=== PATIENT | female | born 1995 | race Caucasian/White ===

== ENCOUNTER 2016-11-27 04:15 | Emergency (ER) | payer OTHER ==
[2016-11-27 04:36] VITALS: BP 150/85; PULSE 92; RESP 16; TEMP 97.6; O2SAT 99
== END 2016-11-27 04:54 ==
LOC: ED 04:15
DX: F43.23 Adjustment disorder with mixed anxiety and depressed mood (principal)
CPT/HCPCS: 99282

== ENCOUNTER 2016-12-15 13:08 | Emergency (ER) | payer OTHER ==
[2016-12-15 13:27] VITALS: TEMP 99.2; O2SAT 100
[2016-12-15 13:47] LABS: APPEARANCE,URINE Clear; BILIRUBIN,URINE NEGATIVE (NEGATIVE); COLOR,URINE Yellow; GLUCOSE, URINE (UA) NEGATIVE (NEGATIVE); KETONES,URINE NEGATIVE (NEGATIVE); LEUKOCYTE ESTERASE ,URINE NEGATIVE (NEGATIVE); NITRATE,URINE NEGATIVE (NEGATIVE); OCCULT BLOOD,URINE 1+ (NEG-TRACE); UROBILINOGEN,URINE 0.2 (0.2-1.0 EU)
[2016-12-15 13:51] LABS: WBC,URINE 0-2 (0-5AV/HPF)
[2016-12-15 16:37] VITALS: BP 110/74; PULSE 80; RESP 18
== END 2016-12-15 16:00 | disposition home or self-care (01) ==
LOC: ED 13:08
DX: O26.891 Other specified pregnancy related conditions, first trimester (principal); R23.8 Other skin changes; R11.0 Nausea; R46.89 Other symptoms and signs involving appearance and behavior; M54.5 Low back pain; R10.33 Periumbilical pain
CPT/HCPCS: 81001; 84703; 99282; 99283

== ENCOUNTER 2016-12-22 18:03 | Emergency (ER) | payer OTHER ==
[2016-12-22 18:20] VITALS: RESP 16; TEMP 98.9
[2016-12-22 18:41] LABS: BASOPHILS % (AUTO) 1 % (0-3); EOSINOPHILS % (AUTO) 3 % (0-9); HEMATOCRIT 38 % (35-47); MEAN CORPUSCULAR HGB CONC 32.9 gm/dl (32.0-36.0); MEAN CORPUSCULAR VOLUME 85 fL (81-99); MONOCYTES % (AUTO) 5.8 % (0-12); NEUTROPHILS % (AUTO) 61.3 % (37-80)
[2016-12-22 18:59] LABS: ALBUMIN 3.6 gm/dl (3.4-5.0); CALCIUM 8.7 mg/dl (8.5-10.1); MAGNESIUM 1.9 mg/dl (1.8-2.4); POTASSIUM 3.6 mMol/L (3.5-5.1)
[2016-12-22] MEDS ORDERED: SODIUM CHLORIDE 0.9% 500 ML 500 ML IV ONE (20:12)
[2016-12-22 22:20] VITALS: BP 126/74; PULSE 82; O2SAT 98
== END 2016-12-22 21:57 | disposition home or self-care (01) ==
LOC: ED 18:03
DX: O9A.311 Physical abuse complicating pregnancy, first trimester (principal); S40.812A Abrasion of left upper arm, initial encounter; S40.811A Abrasion of right upper arm, initial encounter; R10.9 Unspecified abdominal pain; Z3A.08 8 weeks gestation of pregnancy; Y04.8XXA Assault by other bodily force, initial encounter; Y07.01 Husband, perpetrator of maltreatment and neglect
CPT/HCPCS: 36415; 71010; 80053; 83735; 84100; 85025; 93005; 96365; 99284; 99285

== ENCOUNTER 2016-12-24 18:07 | Emergency (ER) | payer OTHER ==
[2016-12-24 19:07] LABS: BASOPHILS % (AUTO) 1 % (0-3); EOSINOPHILS % (AUTO) 3 % (0-9); HEMATOCRIT 37 % (35-47); MEAN CORPUSCULAR HGB CONC 32.9 gm/dl (32.0-36.0); MEAN CORPUSCULAR VOLUME 86 fL (81-99); NEUTROPHILS % (AUTO) 60.8 % (37-80)
[2016-12-24 19:30] LABS: CALCIUM 9.2 mg/dl (8.5-10.1); GLOM FILT RATE 85 mL/min (>60); POTASSIUM 3.6 mMol/L (3.5-5.1); SALICYLATE < 2.8 mg/dl (2.8-30.0); SODIUM 136 mMol/L (136-145); THYROID STIMULATING HORMONE 2.088 uIU/ml (0.358-3.740)
[2016-12-24 19:32] LABS: APPEARANCE,URINE Slightly Cloudy; BILIRUBIN,URINE NEGATIVE (NEGATIVE); COLOR,URINE Yellow; GLUCOSE, URINE (UA) NEGATIVE (NEGATIVE); KETONES,URINE NEGATIVE (NEGATIVE); LEUKOCYTE ESTERASE ,URINE NEGATIVE (NEGATIVE); NITRATE,URINE NEGATIVE (NEGATIVE); OCCULT BLOOD,URINE 1+ (NEG-TRACE); UROBILINOGEN,URINE 0.2 (0.2-1.0 EU)
[2016-12-24 19:43] LABS: AMPHETAMINES NEGATIVE (NEGATIVE); METHADONE NEGATIVE (NEGATIVE); METHAMPHETAMINES NEGATIVE (NEGATIVE); OPIATES(OP13) NEGATIVE (NEGATIVE); OXYCODONE(OXY) NEGATIVE (NEGATIVE); PROPOXYPHENE(PPX) NEGATIVE (NEGATIVE); RBC,URINE 0-3 (0-3AV/HPF); TRICYCLIC ANTIDEPRESSANTS NEGATIVE (NEGATIVE)
[2016-12-24 21:41] VITALS: BP 131/84; PULSE 102; RESP 16; TEMP 98.7; O2SAT 98
== END 2016-12-24 21:50 | disposition short-term general hospital (02) ==
LOC: ED 18:07
DX: R45.851 Suicidal ideations (principal); F32.9 Major depressive disorder, single episode, unspecified
CPT/HCPCS: 36415; 80048; 80305; 80307; 81001; 84443; 85025; 99284; 99285

== ENCOUNTER 2017-02-01 07:16 | Emergency (ER) | payer OTHER ==
[2017-02-01 07:31] VITALS: RESP 22; TEMP 98.9
[2017-02-01 08:55] VITALS: BP 125/73; PULSE 86; O2SAT 97
== END 2017-02-01 08:36 | disposition home or self-care (01) ==
LOC: ED 07:16
DX: O20.9 Hemorrhage in early pregnancy, unspecified (principal); Z3A.10 10 weeks gestation of pregnancy
CPT/HCPCS: 36415; 99283

== ENCOUNTER 2017-02-13 16:34 | Emergency (ER) | payer OTHER ==
[2017-02-13 17:00] VITALS: BP 140/89; PULSE 95; RESP 18; TEMP 98.1; O2SAT 100
[2017-02-13 17:46] LABS: BASOPHILS % (AUTO) 1 % (0-3); EOSINOPHILS % (AUTO) 4 % (0-9); HEMATOCRIT 39 % (35-47); MEAN CORPUSCULAR HGB CONC 34.1 gm/dl (32.0-36.0); MEAN CORPUSCULAR VOLUME 87 fL (81-99); MONOCYTES % (AUTO) 5.2 % (0-12); NEUTROPHILS % (AUTO) 60.8 % (37-80)
[2017-02-13 18:06] LABS: APPEARANCE,URINE Cloudy; BILIRUBIN,URINE NEGATIVE (NEGATIVE); COLOR,URINE Red; GLUCOSE, URINE (UA) NEGATIVE (NEGATIVE); KETONES,URINE NEGATIVE (NEGATIVE); LEUKOCYTE ESTERASE ,URINE 1+ (NEGATIVE); NITRATE,URINE NEGATIVE (NEGATIVE); OCCULT BLOOD,URINE 3+ (NEG-TRACE); UROBILINOGEN,URINE 0.2 (0.2-1.0 EU)
[2017-02-13 18:11] LABS: RBC,URINE 150-160 (0-3AV/HPF)
== END 2017-02-13 18:37 | disposition home or self-care (01) ==
LOC: ED 16:34
DX: O23.41 Unspecified infection of urinary tract in pregnancy, first trimester (principal)
CPT/HCPCS: 36415; 81001; 85025; 99282; 99283

== ENCOUNTER 2017-03-04 09:17 | Observation (INO) | payer OTHER ==
[2017-03-04] MEDS ORDERED: ACETAMINOPHEN 325 MG PO ONE (09:23)
[2017-03-04] MEDS ORDERED: OXYTOCIN 10000 MU/ML SOL IM PRN (09:53)
[2017-03-04] MEDS ORDERED: OXYTOCIN 10000 MU/ML SOL ONE (09:58)
[2017-03-04] MEDS ORDERED: ACETAMINOPHEN 325 MG ONE (10:19)
[2017-03-04] MEDS ORDERED: MISOPROSTOL 100 MCG TAB PR ONE (11:03)
[2017-03-04] MEDS ORDERED: MISOPROSTOL 100 MCG TAB PO ONE (11:03)
[2017-03-04] MEDS ORDERED: MISOPROSTOL 100 MCG TAB ONE (11:07)
[2017-03-04 12:44] LABS: HEMATOCRIT 38 % (35-47); MEAN CORPUSCULAR HGB CONC 35.2 gm/dl (32.0-36.0); MEAN CORPUSCULAR VOLUME 86 fL (81-99)
[2017-03-04 13:05] LABS: BASOPHILS % (MANUAL) 0 % (0-3); EOSINOPHILS % (MANUAL) 0 % (0-9); LYMPHOCYTES % (MANUAL) 17 % (10-50); NORMAL RBCS PRESENT; PLATELET MORPHOLOGY COMMENT ADEQUATE
[2017-03-04] MEDS ORDERED: METHYLERGONOVINE MALEATE 0.2 MG/ML SOL IM PRN (13:29)
[2017-03-04] MEDS ORDERED: LACTATED RINGERS 1,000 ML IV SCH (13:30)
[2017-03-04] MEDS ORDERED: CARBOPROST 250 MCG/ML SOL IM PRN (13:31)
[2017-03-04] MEDS ORDERED: IBUPROFEN 600 MG TAB PO PRN (13:33)
[2017-03-04] MEDS ORDERED: ACETAMINOPHEN 500 MG 500 MG TAB PO PRN (13:55)
[2017-03-04] MEDS ORDERED: METHYLERGONOVINE MALEATE 0.2 MG/ML SOL ONE (14:00)
[2017-03-04] MEDS: SODIUM CHLORIDE 0.9% FLUSH 10 ML SOL IV SCH ×2 (14:07→21:55)
[2017-03-04 14:08] LABS: ALBUMIN 2.8 gm/dl (3.4-5.0)
[2017-03-04 14:10] LABS: POTASSIUM 3.7 mMol/L (3.5-5.1)
[2017-03-04 14:11] LABS: CALCIUM 8.9 mg/dl (8.5-10.1)
[2017-03-04 14:58] LABS: ABO O; ANTIBODY SCREEN Negative; RH TYPE Positive
[2017-03-04 17:08] VITALS: RESP 20
[2017-03-05 07:40] LABS: BASOPHILS % (AUTO) 1 % (0-3); EOSINOPHILS % (AUTO) 4 % (0-9); HEMATOCRIT 34 % (35-47); MEAN CORPUSCULAR HGB CONC 35.6 gm/dl (32.0-36.0); MEAN CORPUSCULAR VOLUME 87 fL (81-99); MONOCYTES % (AUTO) 3.7 % (0-12); NEUTROPHILS % (AUTO) 66.5 % (37-80)
[2017-03-05 10:00] VITALS: BP 108/73; PULSE 98; TEMP 98.3; O2SAT 97
[2017-03-05] MEDS: SODIUM CHLORIDE 0.9% FLUSH 10 ML SOL IV SCH (10:18)
== END 2017-03-05 13:00 | disposition home or self-care (01) ==
LOC: ED 09:17 → SUPCPDRO 09:17 → ACUTE CARE 11:10
PROVIDERS: ADMIT Emergency Medicine; ATTEND Emergency Medicine
DX: O03.9 Complete or unspecified spontaneous abortion without complication (principal); Z3A.17 17 weeks gestation of pregnancy
CPT/HCPCS: 99284 ×3; 80053; 85007; 85025; 85027; 85378; 85384; 85610; 85730; 86850; 86900; 86901; 94762; J2210; J2590; 36415

== ENCOUNTER 2017-03-08 13:54 | Emergency (ER) | payer OTHER ==
[2017-03-08] MEDS ORDERED: SODIUM CHLORIDE 0.9% 1000ML 1,000 ML IV ONE (14:17)
[2017-03-08 14:24] LABS: HEMATOCRIT 33 % (35-47); MEAN CORPUSCULAR HGB CONC 36.1 gm/dl (32.0-36.0); MEAN CORPUSCULAR VOLUME 86 fL (81-99)
[2017-03-08 14:31] LABS: CALCIUM 8.7 mg/dl (8.5-10.1); POTASSIUM 3.2 mMol/L (3.5-5.1)
[2017-03-08 14:37] VITALS: BP 151/84; PULSE 108; RESP 20; TEMP 97.2; O2SAT 98
[2017-03-08 14:55] LABS: BASOPHILS % (MANUAL) 0 % (0-3); EOSINOPHILS % (MANUAL) 2 % (0-9); LYMPHOCYTES % (MANUAL) 36 % (10-50)
[2017-03-08 14:56] LABS: NORMAL RBCS PRESENT
== END 2017-03-08 16:12 | disposition home or self-care (01) ==
LOC: ED 13:54
DX: N93.9 Abnormal uterine and vaginal bleeding, unspecified (principal); Z87.898 Personal history of other specified conditions
CPT/HCPCS: 80048; 85007; 85027; 85610; 99283

== ENCOUNTER 2017-04-13 12:52 | Emergency (ER) | payer OTHER ==
[2017-04-13 13:22] LABS: BASOPHILS % (AUTO) 1 % (0-3); EOSINOPHILS % (AUTO) 3 % (0-9); HEMATOCRIT 37 % (35-47); MEAN CORPUSCULAR HGB CONC 33.1 gm/dl (32.0-36.0); MEAN CORPUSCULAR VOLUME 89 fL (81-99); MONOCYTES % (AUTO) 3.6 % (0-12); NEUTROPHILS % (AUTO) 64.8 % (37-80)
[2017-04-13 13:37] VITALS: BP 136/93; PULSE 107; RESP 16; TEMP 98.1; O2SAT 100
[2017-04-13 13:45] LABS: ALBUMIN 3.8 gm/dl (3.4-5.0); ALT 135 IU/L (14-63); CALCIUM 8.7 mg/dl (8.5-10.1); GLOM FILT RATE 76 mL/min (>60); POTASSIUM 3.7 mMol/L (3.5-5.1); SODIUM 140 mMol/L (136-145); THYROID STIMULATING HORMONE 1.671 uIU/ml (0.358-3.740)
[2017-04-13 14:40] LABS: APPEARANCE,URINE Clear; BILIRUBIN,URINE 1+ (NEGATIVE); COLOR,URINE Dark yellow; GLUCOSE, URINE (UA) NEGATIVE (NEGATIVE); KETONES,URINE NEGATIVE (NEGATIVE); LEUKOCYTE ESTERASE ,URINE NEGATIVE (NEGATIVE); NITRATE,URINE NEGATIVE (NEGATIVE); OCCULT BLOOD,URINE 1+ (NEG-TRACE); PH,URINE 5.5; UROBILINOGEN,URINE 0.2 (0.2-1.0 EU)
[2017-04-13 14:59] LABS: ICTOTEST,URINE NEGATIVE (NEGATIVE); RBC,URINE 0-2 (0-3AV/HPF); TRICYCLIC ANTIDEPRESSANTS NEGATIVE (NEGATIVE); WBC,URINE 0-1 (0-5AV/HPF)
[2017-04-13 15:00] LABS: AMPHETAMINES NEGATIVE (NEGATIVE); METHADONE NEGATIVE (NEGATIVE); OPIATES(OP13) NEGATIVE (NEGATIVE); OXYCODONE(OXY) NEGATIVE (NEGATIVE); PROPOXYPHENE(PPX) NEGATIVE (NEGATIVE)
== END 2017-04-13 17:28 | disposition short-term general hospital (02) ==
LOC: ED 12:52
DX: R45.851 Suicidal ideations (principal); F32.9 Major depressive disorder, single episode, unspecified
CPT/HCPCS: 80053; 80305; 80307; 81001; 84443; 84703; 85025; 99284